=== PATIENT | female | born 1995 | race American Indian/Alaskan Native ===

== ENCOUNTER 2017-10-05 22:12 | Outpatient (CLI) | payer OTHER ==
[2017-10-05 22:34] VITALS: BP 116/74
== END 2017-10-05 23:55 | disposition home or self-care (01) ==
LOC: TRG 22:12
PROVIDERS: ATTEND Obstetrics & Gynecology
DX: O62.9 Abnormality of forces of labor, unspecified (principal); Z3A.39 39 weeks gestation of pregnancy